=== PATIENT | female | born 1985 | race Caucasian/White ===

== ENCOUNTER 2022-05-18 08:59 | Day surgery (SDC) | payer OTHER ==
[~2022-05-18] VITALS: Ht 157.5 cm; Wt 67.1 kg
[2022-05-18] MEDS ORDERED: fentaNYL citrate 0.05 MG/ML VIAL ONE (11:17)
[2022-05-18] MEDS ORDERED: MIDAZOLAM 5 MG/5 ML VIAL ONE (11:17)
[2022-05-18] MEDS ORDERED: LIDOCAINE 2% 100 MG/5 ML UJET TP ONE (11:18)
[2022-05-18] MEDS ORDERED: MIDAZOLAM 2 MG/2 ML VIAL IVP ONE (14:40)
[2022-05-18] MEDS ORDERED: fentaNYL citrate 0.05 MG/ML VIAL IVP ONE (14:40)
== END 2022-05-18 13:08 | disposition home or self-care (01) ==
LOC: MDS 08:59 → MMU 08:59 → MDS 13:08
PROVIDERS: ATTEND Internal Medicine Gastroenterology
DX: K62.5 Hemorrhage of anus and rectum (principal); K21.9 Gastro-esophageal reflux disease without esophagitis; L91.8 Other hypertrophic disorders of the skin; J45.909 Unspecified asthma, uncomplicated; F17.210 Nicotine dependence, cigarettes, uncomplicated; Z79.899 Other long term (current) drug therapy; Z20.822 Contact with and (suspected) exposure to COVID-19
CPT/HCPCS: 43235; 45378; 81025; 87426; J2250; J3010